=== PATIENT | female | born 1955 | race African-American/Black ===

== ENCOUNTER → 2017-12-13 | Day surgery (SDC) | payer OTHER ==
--- NOTE | 2017-12-12 10:31 | Diagnostic Imaging Report ---
PROCEDURE: X-RAY CHEST, TWO VIEWS COMPARISON: None. INDICATIONS: PRE-OPERATIVE CHEST X-RAY FOR KNEE SURGERY FINDINGS: LUNGS: No consolidations or edema. PLEURA: No effusions or pneumothorax. HEART \T\ MEDIASTINUM: The heart is within normal size-limits. BONES \T\ SOFT TISSUES: No acute findings. CONCLUSION: No acute thoracic abnormality. Dictated by: Anant Parsons M.D. on 12/12/2017 at 10:39 Electronically approved by: Anant Parsons M.D. on 12/12/2017 at 10:39
[~2017-12-13] MED LIST: ACETAMINOPHEN 1000 MG/100 ML 100 ML IV ONE; ACETAMINOPHEN 1000 MG/100 ML IV ONE; ATENOLOL50 MG PO; CLINDAMYCIN 600MG / 50ML 50 ML IV ONE; DEXAMETHASONE SOD PHOS INJ 4 MG/ML VIAL ONE; FENTANYL CITRATE/PF 100MCG/2 ML INJ ONE; KETAMINE HCL INJ 50 MG/ML 10 ML VIAL ONE; KETOROLAC TROMETHAMINE 30 MG/ML VIAL ONE; LIDOCAINE 2% /EPINEPHRINE 20 ML SDV INJ ONE; LIDOCAINE HCL 2% LOCAL INJ 5 ML SDV VIAL INJ ONE; LISINOPRIL10 MG PO; MELOXICAM7.5 MG PO; MIDAZOLAM HCL 2 MG/2 ML VIAL ONE; MORPHINE SULFATE INJ 10 MG/ML ONE; ONDANSETRON HCL INJ 2 MG/ML VIAL ONE; PANTOPRAZOLE SO40 MG PO; PROAIR HFA INH8.5 GM INH; PROPOFOL IV EMULSION 10 MG/ML 20 ML VIAL ONE; ROCURONIUM BROMIDE 10 MG/ML 5ML VIAL ONE; ROPIVACAINE 0.5% 5 MG/ML 30 ML SDV ONE; ULTRAM50 MG PO
[2017-12-13 09:31] LABS: BASOPHILS % 0.4 % (0.0-1.0); EOSINOPHILS # (AUTO) 0.1 (0.0-0.4); EOSINOPHILS % 1.5 % (0.0-6.0); HEMATOCRIT 40.1 % (34.2-44.1); HEMOGLOBIN 13.3 g/dL (12.0-16.0); LYMPHOCYTES # (AUTO) 4.2 (1.0-3.2); LYMPHOCYTES % 49.7 % (18.0-39.1); MEAN CORPUSCULAR HEMOGLOBIN 30.4 pg (28-32); MEAN CORPUSCULAR HGB CONC 33.2 g/dL (31-35); MEAN CORPUSCULAR VOLUME 91.8 fL (81-99); MONOCYTES # (AUTO) 0.9 (0.2-0.8); NEUTROPHILS # (AUTO) 3.2 (2.1-6.9); PLATELET COUNT 208 x10e3/uL (140-360); RED BLOOD COUNT 4.37 x10e6/uL (3.6-5.1); RED CELL DISTRIBUTION WIDTH 14.5 % (11.7-14.4)
--- NOTE | 2017-12-13 12:40 | Operative Report ---
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 Throughout this case, my PA's assistance was necessary for retraction of soft tissue and positioning of the extremity. This allows for efficient and technically successful execution of the operation and is considered medically necessary. PREOPERATIVE DIAGNOSIS: Left knee degenerative medial meniscal tear. POSTOPERATIVE DIAGNOSES 1. Left knee medial meniscal tear. 2. 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 PROCEDURE: Left knee arthroscopy, partial medial meniscectomy, chondroplasties of the medial femoral condyle and the undersurface of the patella. INDICATIONS: The patient is a 62-year-old lady who is complaining of severe pain in her left knee. We have attempted extensive conservative management. She complains of disabling pain. Clinic exam is suggestive of a degenerative medial meniscal tear. She would like to proceed with surgical intervention. The risks and benefits of arthroscopy were discussed. Her daughter who is in the healthcare profession was present. The importance of realistic expectations was stressed. Arthroscopy is not going to resolve her arthritic pain. She stated she understood and wished to proceed. DESCRIPTION OF PROCEDURE: The patient was brought to the operating room and placed under general anesthetic. Her left lower extremity was prepped and draped in a sterile manner. A preoperative time out was performed. The extremity had been exsanguinated, and a proximal tourniquet was inflated to 300 mmHg. Standard arthroscopy portals were established. The knee was insufflated with sterile saline and systematically inspected. She was noted to have synovitis in the suprapatellar pouch. There was grade-2 chondromalacia of the undersurface of the patella. There was extensive grade-3 chondromalacia of the trochlear groove. A mechanical shaver was introduced into the joint. The undersurface of the patella was debrided back to a stable margin. There were no areas that needed to be debrided along with trochlear groove. The medial compartment was inspected. There was a small tear of the posterior horn of the medial meniscus. This was debrided back to a stable rim using a combination of biting forceps and mechanical shaver. There was an area of full-thickness cartilage loss on the weightbearing surface of the medial femoral condyle. This had obviously unstable margins. This was gently contoured back to stable construct. Before and after photographs were taken. The cruciate ligaments were then inspected and noted to be stable. The lateral compartment was inspected and probed. There was no evidence of any abnormalities. The medial and lateral gutters were inspected. There were some developing medial osteophytes, but, otherwise, there were no loose bodies. The knee was thoroughly irrigated. The arthroscopic instruments were removed. The portal incisions were closed with nylon stitches. A sterile bandage was applied. Estimated blood loss was less than 5 mL. All needle and sponge counts were correct. Job#: [id number]
[2017-12-13 13:15] VITALS: BP 138/77
== END | disposition home or self-care (01) ==
LOC: OR 07:52
PROVIDERS: ATTEND Specialist
DX: S83.242A Other tear of medial meniscus, current injury, left knee, initial encounter (principal); M22.42 Chondromalacia patellae, left knee; M17.12 Unilateral primary osteoarthritis, left knee; M65.862 Other synovitis and tenosynovitis, left lower leg; J44.9 Chronic obstructive pulmonary disease, unspecified; I10 Essential (primary) hypertension; E78.5 Hyperlipidemia, unspecified; E66.01 Morbid (severe) obesity due to excess calories; K58.9 Irritable bowel syndrome, unspecified; K21.9 Gastro-esophageal reflux disease without esophagitis; F17.210 Nicotine dependence, cigarettes, uncomplicated; W18.49XA Other slipping, tripping and stumbling without falling, initial encounter; Y93.89 Activity, other specified; Y92.002 Bathroom of unspecified non-institutional (private) residence as the place of occurrence of the external cause; Z88.6 Allergy status to analgesic agent; Z88.0 Allergy status to penicillin; Z91.018 Allergy to other foods; Z01.810 Encounter for preprocedural cardiovascular examination; Z01.818 Encounter for other preprocedural examination; Z68.38 Body mass index [BMI] 38.0-38.9, adult
CPT/HCPCS: 29881; 36415; 71046; 85025; 93005; J1100; J1885; J2001 ×2; J2250; J2270; J2405; J2795